=== PATIENT | male | born 1960 | race Caucasian/White ===

== ENCOUNTER 2023-05-04 05:14 | Observation (INO) ==
--- NOTE | 2023-04-06 15:00 | PAT Medication Instructions ---
Medication Instructions Date of Service April 06, 2023 Home Medications atenolol 50 mg tablet 75 mg PO QAM atorvastatin 20 mg tablet 20 mg PO QAM famotidine 1 tab PO QAM finasteride 1 dose PO QAM lisinopril 10 mg-hydrochlorothiazide 12.5 mg tablet 1 tab PO QAM trazodone 50 mg tablet 50 mg PO HS zolpidem 10 mg tablet (Ambien) 10 mg PO HS DO NOT take the morning of surgery lisinopril 10 mg-hydrochlorothiazide 12.5 mg tablet 1 tab PO QAM Take morning of surgery With a small sip of water, OTHERWISE NOTHING TO EAT OR DRINK AFTER MIDNIGHT: atenolol 50 mg tablet 75 mg PO QAM atorvastatin 20 mg tablet 20 mg PO QAM famotidine 1 tab PO QAM finasteride 1 dose PO QAM Take evening before surgery trazodone 50 mg tablet 50 mg PO HS zolpidem 10 mg tablet (Ambien) 10 mg PO HS Other Notes If you have any questions please call us at [phone] or [phone] or [phone] or [phone]
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
[2023-05-04] MEDS ORDERED: TRANEXAMIC ACID 1,000 MG **IV Pre-op IV SCH (06:00)
[2023-05-04] MEDS ORDERED: LR 500ML BOLUS, THEN 15ML/HR IV SCH (06:00)
[2023-05-04] MEDS ORDERED: ACETAMINOPHEN 500 MG TAB PO SCH (06:00)
[2023-05-04] MEDS ORDERED: Scopolamine 1 MG TDSY TD SCH (06:00)
[2023-05-04] MEDS ORDERED: CeleBREX 200 MG CAP PO SCH (06:00)
[2023-05-04] MEDS ORDERED: TRANEXAMIC ACID 1,000 MG **IV Intra-op IV SCH (06:00)
[2023-05-04] MEDS ORDERED: ROPIVACAINE 0.5% HCL/PF 150 MG, BUPIVACAINE 0.75% MPF 20 ML, EPINEPHrine 0.15 MG, Ketor... INFIL SCH (06:00)
[2023-05-04] MEDS ORDERED: LR 60ML/HR IV SCH (06:00)
[2023-05-04] MEDS ORDERED: BUPIVACAINE 0.5 % 5 MG/1 ML PF 10ML VIAL ONE (06:25)
[2023-05-04] MEDS ORDERED: ROPIVACAINE 0.5% 5 MG/ML 30 ML VIAL ONE (06:25)
[2023-05-04] MEDS ORDERED: DEXAMETHASONE SOD INJ 4 MG/ML VIAL ONE (06:25)
--- NOTE | 2023-05-04 06:36 | History & Physical Bridge Note ---
Date of Service May 04, 2023 History & Physical Bridge Note I have examined the patient, reviewed the History & Physical and in the interval since the performance of the History & Physical I have noted the following changes of clinical significance: no changes noted
[2023-05-04] MEDS ORDERED: fentaNYL citrate PF 100 MCG/2 ML VIAL ONE (06:47)
[2023-05-04] MEDS ORDERED: MIDAZOLAM HCL 1 MG/ML 2ML VIAL ONE (06:47)
[2023-05-04] MEDS ORDERED: ORTHO JOINT ANESTHETIC ONE (06:56)
[2023-05-04] MEDS ORDERED: KETAMINE 50 MG/5 ML SYRINGE ONE (07:46)
[2023-05-04] MEDS ORDERED: ONDANSETRON INJ 2 MG/ML 2 ML VIAL IV PRN ×2 (08:16→11:46)
[2023-05-04] MEDS ORDERED: HYDROmorphone INJ 1 MG/ML SYRINGE IV PRN (08:16)
[2023-05-04] MEDS ORDERED: ATROPINE SULFATE 0.1 MG/ML 10ML SYR IV PRN (08:16)
[2023-05-04] MEDS ORDERED: ePHEDrine sulfate 50 MG/ML AMP IV PRN (08:16)
[2023-05-04] MEDS ORDERED: PROPOFOL IV EMULSION 10 MG/ML 20 ML VIAL IV ONE ×3 (09:00→09:28)
--- NOTE | 2023-05-04 10:20 | Post Operative Brief Note ---
Immediate Post Op Note v1 Date of Surgery May 04, 2023 Pre & Post Diagnosis Operation Date: 05/04/23 07:00 Pre-Op Diagnosis: Right Knee Degenerative Joint Disease Post-Op Diagnosis: Right Knee Degenerative Joint Disease I identified the patient and participated in the time-out.: Yes Procedure Operation Date: 05/04/23 07:00 Actual Procedures p Right Total Knee Arthroplasty(Right) - Tj Waite MD Surgeon Tj Waite MD Plasma Processing Technician A MD Anatoly & M RADHA Senior Estimated Blood Loss 120 Findings Consistent with Post-Op Diagnosis Fluids 1400 cc Specimens Right knee contents Complications none
--- NOTE | 2023-05-04 10:20 | Operative Report ---
Post Operative Report Pre & Post Diagnosis Operation Date: 05/04/23 07:00 Pre-Op Diagnosis: Right Knee Degenerative Joint Disease Post-Op Diagnosis: Right Knee Degenerative Joint Disease I identified the patient and participated in the time-out.: Yes Procedure Operation Date: 05/04/23 07:00 Actual Procedures p Right Total knee replacement, imageless computer assisted navigation - Tj Waite MD Surgeon Tj Waite MD Glost Placer Tanna Ledbetter MD & M RADHA Senior Estimated Blood Loss 120 Findings See Below Examined Under Anesthesia: ROM -- There was 5 degrees to 115 degrees of flexion Ligamentous examination -- revealed stable posterior drawer, varus and valgus stress at 0 and 30 degrees. Zackary 6mm anterior translation and soft end point. Outerbridge Grade IV changes of medial compartment, grade III-IV changes Patellofemoral compartment, grade II-III changes lateral compartment. Macerated, complex tear medial meniscus. Marginal and intracondylar osteophytes. Sutures and some soft tissue graft within the former ACL Tibial Tunnel. Fluids 1400 cc Specimens Right knee contents Anesthesia Type MAC Spinal Regional Complications none Indications This is a 62-year-old male who has clinical and radiographic findings consistent with osteoarthritis of the a right knee. I recommended that a right total knee replacement be performed. The patient understands the risks of surgery, which include but not limited to: bleeding, infection, re-operation, damage to nerves and arteries, continued knee pain, knee stiffness, DVT, and . The patient understands all of these instructions and explanations, all of his questions have been satisfactorily addressed and the patient has elected to proceed. Informed consent was signed. Description of Procedure IMPLANTS: 1. Femur: Triathlon #8 Right PS. 2. Tibia: Triathlon #7 [place] with 12 x 50 mm stem. 3. Insert: Triathlon #7 x 9 mm TS X3 poly. 4. Patella: Triathlon A38 x 11 mm X3 poly. 5. Palacos cement. Procedure: The patient was taken to the Operating Room and placed in the supine position after spinal and adductor canal nerve block was administered. My initials and a multidisciplinary time-out were used to identify the right leg as the correct operative limb. A tourniquet was placed high in the thigh. Prior to the incision, 3 grams of intravenous Ancef were given. The right leg was then prepped and draped in a standard sterile fashion. An Esmarch was used to exsanguinate the leg and the tourniquet was inflated to 250 mmHg. The planned mid-line 20 cm incision was created exposing the extensor mechanism. The medial parapatellar arthrotomy was made and the patella was everted. The patella was addressed first. It was prepared by reaming from 26 mm down to 15 mm. An A38 button was found to fit best. The peg holes were made in the standard fashion. The femur was addressed next and using computer assisted OrthoAlign with 3 degrees of flexion and 0 degrees of valgus, removing 10 mm in the standard fashion for the distal cut. The cut was made and the 4-in-1 cutting block for a size 8 femur was placed. These cuts and the cuts to place the box were made in the standard fashion. Our attention was then drawn to the tibia cut with using imageless computer assisted OrthoAlign, taking 2 mm from the medial low side. There was sufficient extension and flexion gap to fit a 9 mm spacer. A #7 Tibial baseplate fit well. A trial with a 9 mm spacer showed good stability in flexion, in extension there was 1mm opening, and thumbs free patellar tracking. A trial with a 9 mm TS spacer showed excellent stability in both flexion and extension, with good ligament balance, and thumbs free patellar tracking. Range of motion of 0-130 degrees. The tibial baseplate was prepped for the keel and stem. A stem was used to by pass the ACL tunnel, to avoid subsidence. All components were removed. The tourniquet was deflated. Hemostasis was obtained. 90 ml of total knee cocktail were injected into the soft tissues and periosteum. After a 10 minute break, the limb was exsanguinated again and the tourniquet was re-inflated. All surfaces were copiously irrigated prior to placement of the components. The femoral component followed by Tibial baseplate were cemented in place and the 9 mm TS X3 poly was placed. Next, the patellar button was placed using the same cement. Once the cement had cured, the range of motion and stability were unchanged. The extensor mechanism was closed with 1-0 Vicryl and 0 Stratafix with the knee bent approximately 60 degrees in a standard fashion. The peritenon and deep fascia was closed with 2-0 Vicryl. The subcutaneous layer was closed with 3-0 Vicryl. The skin was closed with Zipline and shield. The limb was cleaned and dried. 4x4 dressing was placed over top followed by ABDs, sterile Webril, and a foot to thigh Arnold bandage. The patient was then transferred to the Recovery Room in stable condition. The sponge and needle counts were correct. POST-OP INSTRUCTIONS: The patient will be WBAT. The patient will be admitted to the hospital. Labs will be obtained during the stay. DVT prophylaxis will included aspirin for 6 weeks, TEDs, and mechanical foot pumps. The dressing will be changed prior to their discharge or postop day #2 and covered with a Silverlon dressing, whichever comes first as long as the incision as dry. I attest to the content of the Intraoperative Record and any orders documented therein. Any exceptions are noted below.
--- NOTE | 2023-05-04 10:48 | Operative Report ---
Post Operative Report Pre & Post Diagnosis Operation Date: 05/04/23 07:00 Pre-Op Diagnosis: Right Knee Degenerative Joint Disease Post-Op Diagnosis: Right Knee Degenerative Joint Disease I identified the patient and participated in the time-out.: Yes Procedure Operation Date: 05/04/23 07:00 Actual Procedures p Right Total Knee Arthroplasty(Right) - Tj Waite MD Surgeon Dr Tj Waite Mathematics Education Professor A MD Anatoly & M RADHA Senior Estimated Blood Loss 120 Findings Consistent with Post-Op Diagnosis Specimens none Description of Procedure Pt was taken to operating room, placed under spinal anesthesia with MAC. Pt was given 3g Ancef IV. Prepped and draped in sterile fashion. I was present during the entire case and assisted with positioning, instrumentation, closure and dressings. Please see Dr. Waite's op report for further detail. Pt was awake and transferred to PACU in stable condition I attest to the content of the Intraoperative Record and any orders documented therein. Any exceptions are noted below.
--- NOTE | 2023-05-04 11:04 | Operative Report ---
Post Operative Report Pre & Post Diagnosis Operation Date: 05/04/23 07:00 Pre-Op Diagnosis: Right Knee Degenerative Joint Disease Post-Op Diagnosis: Right Knee Degenerative Joint Disease I identified the patient and participated in the time-out.: Yes Procedure Operation Date: 05/04/23 07:00 Actual Procedures p Right Total Knee Arthroplasty(Right) - Tj Waite MD Surgeon Tj Waite MD Renal Technician A MD Anatoly & M RADHA Senior Estimated Blood Loss 120 Findings Consistent with Post-Op Diagnosis Same as postop diagnosis. Specimens None Description of Procedure See deatiled operative note. I attest to the content of the Intraoperative Record and any orders documented therein. Any exceptions are noted below.
--- NOTE | 2023-05-04 11:44 | XRay Report ---
XR knee RT 1 or 2V routine HISTORY: 62 years-old Male Surgical Post Op right knee arthroplasty COMPARISON: 03/18/2023 TECHNIQUE: 2 views of the right knee FINDINGS: Hinged total joint arthroplasty with patellar resurfacing. There is satisfactory alignment with expec beltran postoperative soft tissue swelling and deep tissue air. No acute fracture, malalignment or unexpe cted opaque foreign body. IMPRESSION: Total joint arthroplasty with expected postoperative changes. ACT 112: Negative or not required by law. The above report was generated using voice recognition software. It may contain grammatical, syntax o r spelling errors. Electronically signed by: Daniel Campos M.D. 05/04/2023 11:43 AM
[2023-05-04] MEDS ORDERED: NALOXONE HCL 0.4 MG/1 ML VIAL/CARP IV PRN (11:46)
[2023-05-04] MEDS ORDERED: CETIRIZINE HCL 10 MG TABLET PO PRN (11:46)
[2023-05-04] MEDS ORDERED: MAGNESIUM HYDROXIDE SUSP 30 ML UDC PO PRN (11:46)
[2023-05-04] MEDS ORDERED: bisacodyL 10 MG SUPP PR PRN (11:46)
[2023-05-04] MEDS ORDERED: METOCLOPRAMIDE HCL INJ 5 MG/ML 2 ML VIAL IV PRN (11:46)
[2023-05-04] MEDS ORDERED: TAMSULOSIN HCL 0.4 MG CAP PO PRN (11:46)
[2023-05-04] MEDS ORDERED: HYDROmorphone INJ 0.5 MG/0.5 ML SYR IV PRN (11:46)
[2023-05-04] MEDS: SODIUM CHLORIDE 0.9% 1000ML 1,000 ML IV SCH ×2 (11:54→23:11)
--- NOTE | 2023-05-04 12:54 | Anesthesiology Progress Note ---
Date of Service May 04, 2023 Anesthesia Post Procedure Vital Signs Vital Signs: Temp Pulse Pulse Resp BP Pulse Ox O2 Del Method 05/04/23 12:48 36.4 C L 64 18 121/74 95 Room Air 05/04/23 12:21 36.3 C L 66 18 112/73 95 Room Air 05/04/23 11:30 36.3 C L 59 L 22 107/64 94 Room Air 05/04/23 11:15 60 19 106/61 94 Room Air 05/04/23 10:55 66 19 99/59 L 96 Oxymask 05/04/23 11:05 61 12 100/66 93 Room Air 05/04/23 10:46 36.2 C L 61 21 93/57 L 97 Oxymask 05/04/23 05:50 36.6 C 66 18 100/55 L 95 Room Air O2 Flow Rate 05/04/23 12:48 05/04/23 12:21 05/04/23 11:30 05/04/23 11:15 05/04/23 10:55 5 05/04/23 11:05 05/04/23 10:46 5 05/04/23 05:50 Pain Intensity Right Knee: Pain Intensity: 2 Transfer of Care Handoff Completed per policy Notes Mental Status: alert / awake / arousable and participated in evaluation Nausea / Vomiting: adequately controlled Pain: adequately controlled Airway Patency, RR, SpO2: stable & adequate BP & HR: stable & adequate Hydration State: stable & adequate Neuraxial Anesthesia: was administered and sensory block is resolving Anesthetic Complications: no major complications apparent and Pt Satisfied with anesthetic care
[2023-05-04] MEDS: ACETAMINOPHEN 500 MG TAB PO SCH ×2 (13:15→23:14)
--- NOTE | 2023-05-04 13:56 | Orthopedic Progress Note ---
Date of Service May 04, 2023 Assessment & Plan (1) Osteoarthritis of right knee: Plan: POD #0 s/p R TKA, doing as well as expected. Resume diet. WBAT with walker. OOB to chair. Complete Abx Continue pain control. Check labs tomorrow. DVT prophylaxis: TEDs 3 weeks, foot pumps while in hospital, ASA 81 mg BID for 6 weeks. PT/OT. Change dressing tomorrow if able to be d/c home. D/C planning. Admission and Anticipated Discharge Date Admission Date: May 04, 2023 Subjective Tolerable right knee discomfort. Physical Exam Physical Exam: RLE: BCR < 2 sec. Sensation to light touch intact distally. Wiggling ankle and toes. Able to preform strainght leg raise. Calf soft and non-tender. Dressing is clean, dry, intact. Results & Data Vital Signs (Past 12 Hours) Vital Signs Temp Pulse Pulse Resp BP Pulse Ox O2 Del Method 05/04/23 12:48 36.4 C L 64 18 121/74 95 Room Air 05/04/23 12:21 36.3 C L 66 18 112/73 95 Room Air 05/04/23 11:30 36.3 C L 59 L 22 107/64 94 Room Air 05/04/23 11:15 60 19 106/61 94 Room Air 05/04/23 10:55 66 19 99/59 L 96 Oxymask 05/04/23 11:05 61 12 100/66 93 Room Air 05/04/23 10:46 36.2 C L 61 21 93/57 L 97 Oxymask 05/04/23 05:50 36.6 C 66 18 100/55 L 95 Room Air O2 Flow Rate 05/04/23 12:48 05/04/23 12:21 05/04/23 11:30 05/04/23 11:15 05/04/23 10:55 5 05/04/23 11:05 05/04/23 10:46 5 05/04/23 05:50 Diagnostic Findings Impressions Knee X-Ray 05/04/23 10:58 XR knee RT 1 or 2V routine HISTORY: 62 years-old Male Surgical Post Op right knee arthroplasty COMPARISON: 03/18/2023 TECHNIQUE: 2 views of the right knee FINDINGS: Hinged total joint arthroplasty with patellar resurfacing. There is satisfactory alignment with expected postoperative soft tissue swelling and deep tissue air. No acute fracture, malalignment or unexpected opaque foreign body. IMPRESSION: Total joint arthroplasty with expected postoperative changes. ACT 112: Negative or not required by law. The above report was generated using voice recognition software. It may contain grammatical, syntax or spelling errors. Electronically signed by: Daniel Campos M.D. 05/04/2023 11:43 AM
[2023-05-04] MEDS: Scopolamine CHECK PATCH PLACEMENT SCH (15:17)
[2023-05-04] MEDS: ASCORBIC ACID 500 MG TAB PO SCH (16:04)
[2023-05-04] MEDS: ceFAZolin 2000MG 2,000 MG/15 ML SYR IV SCH ×2 (16:04→23:17)
[2023-05-04] MEDS: FERROUS GLUCONATE 324 MG TAB PO SCH (16:04)
[2023-05-04] MEDS ORDERED: traZODone HCL 50 MG TAB PO SCH (21:00)
[2023-05-04] MEDS ORDERED: ZOLPIDEM TARTRATE 10 MG TAB PO SCH (21:00)
[2023-05-04] MEDS ORDERED: SENNA 8.6 MG TAB PO SCH (21:00)
[2023-05-04] MEDS: oxyCODONE HCL IR 5 MG TAB (IMMEDIATE RELEASE) PO PRN (21:02)
[2023-05-04] MEDS: ASPIRIN 81 MG ECTAB PO SCH (21:04)
[2023-05-04] MEDS: DOCUSATE SODIUM 100 MG CAP PO SCH (21:04)
[2023-05-05] MEDS: Scopolamine CHECK PATCH PLACEMENT SCH ×2 (00:57→07:57)
[2023-05-05] MEDS: oxyCODONE HCL IR 5 MG TAB (IMMEDIATE RELEASE) PO PRN ×2 (03:12→13:00)
[2023-05-05] MEDS: ACETAMINOPHEN 500 MG TAB PO SCH ×2 (06:04→13:00)
[2023-05-05] MEDS: ASCORBIC ACID 500 MG TAB PO SCH (07:55)
[2023-05-05] MEDS: ASPIRIN 81 MG ECTAB PO SCH (07:56)
[2023-05-05] MEDS: FERROUS GLUCONATE 324 MG TAB PO SCH (07:56)
[2023-05-05] MEDS: DOCUSATE SODIUM 100 MG CAP PO SCH (07:56)
[2023-05-05 08:04] LABS: Hematocrit (blood only) 38.6 % (42.0-52.0); Mean Corpuscular Hemoglobin 28.8 pg (25.0-34.0); Mean Corpuscular Hgb Conc 33.7 g/dL (32.0-36.0); Mean Corpuscular Volume 85.4 fL (80.0-100.0); Platelet Count 208 K/uL (130-400); RDW Coefficient of Variation 13.9 % (11.5-14.5); RDW Standard Deviation 43.8 fL (36.4-46.3); Red Blood Count 4.52 M/uL (4.70-6.10); White Blood Count 13.15 K/ul (4.8-10.8)
[2023-05-05 08:13] LABS: BUN Creatinine Ratio 21.7 (10-20); Creatinine Clr Calc Pharmacy 81.9 ml/min; Est GFR (African American) 68.4 ml/min; Potassium 4.2 mmol/L (3.5-5.1)
[2023-05-05] MEDS ORDERED: ATENOLOL 25 MG TABLET PO SCH (09:00)
[2023-05-05] MEDS ORDERED: MULTIVITAMIN TAB PO SCH (09:00)
[2023-05-05] MEDS ORDERED: FINASTERIDE 5 MG TAB PO SCH (09:00)
[2023-05-05] MEDS ORDERED: ATORVASTATIN 20 MG TAB PO SCH (09:00)
[2023-05-05] MEDS ORDERED: FAMOTIDINE 20 MG TAB PO SCH (09:00)
[2023-05-05] MEDS ORDERED: LISINOPRIL/HCTZ 10/12.5MG TAB PO SCH (09:00)
--- NOTE | 2023-05-05 09:33 | Orthopedic Progress Note ---
Date of Service May 05, 2023 Assessment & Plan (1) Osteoarthritis of right knee: Plan: POD #1 s/p R TKA, doing as well as expected. Pain controlled with oral pain meds. Resume diet. WBAT with walker. OOB to chair. Completed Abx Continue pain control. DVT prophylaxis: TEDs 3 weeks, foot pumps while in hospital, ASA 81 mg BID for 6 weeks. PT/OT. Change dressing prior to d/c home. D/C planning. Admission and Anticipated Discharge Date Admission Date: May 04, 2023 Subjective Tolerable right knee discomfort. Noted some muscle spasm with knee extended. Did not sleep well. Overall feels good. Physical Exam Physical Exam: RLE: BCR < 2 sec. Sensation to light touch intact distally. Wiggling ankle and toes. Able to preform strainght leg raise. Calf soft and non-tender. Dressing is clean, dry, intact. Results & Data Vital Signs (Past 12 Hours) Vital Signs Temp Pulse Resp BP Pulse Ox O2 Del Method 05/05/23 07:42 36.7 C 67 18 124/76 96 Room Air 05/05/23 03:09 36.5 C 80 16 132/79 94 Room Air 05/04/23 23:36 36.7 C 71 16 131/76 94 Room Air Laboratory Results Laboratory Results WBC 13.15 K/ul (4.8-10.8) H 05/05/23 07:27 RBC 4.52 M/uL (4.70-6.10) L 05/05/23 07:27 Hgb 13.0 g/dl (14.0-18.0) L 05/05/23 07:27 Hct 38.6 % (42.0-52.0) L 05/05/23 07:27 MCV 85.4 fL (80.0-100.0) 05/05/23 07:27 MCH 28.8 pg (25.0-34.0) 05/05/23 07:27 MCHC 33.7 g/dL (32.0-36.0) 05/05/23 07:27 RDW Std Deviation 43.8 fL (36.4-46.3) 05/05/23 07:27 RDW Coeff of Juan Antonio 13.9 % (11.5-14.5) 05/05/23 07:27 Plt Count 208 K/uL (130-400) 05/05/23 07:27 MPV 11.0 fL (9.4-12.4) 05/05/23 07:27 Sodium 137 mmol/L (136-145) 05/05/23 07:27 Potassium 4.2 mmol/L (3.5-5.1) 05/05/23 07:27 Chloride 106 mmol/L (98-107) 05/05/23 07:27 Carbon Dioxide 25 mmol/L (21-32) 05/05/23 07:27 Anion Gap 6 (3-11) 05/05/23 07:27 BUN 28 mg/dl (6-23) H 05/05/23 07:27 Creatinine 1.29 mg/dl (0.6-1.4) 05/05/23 07:27 Est Cr Clr Drug Dosing 81.9 ml/min 05/05/23 07:27 Est GFR ( Amer) 68.4 ml/min 05/05/23 07:27 Est GFR (Non-Af Amer) 59.0 ml/min 05/05/23 07:27 BUN/Creatinine Ratio 21.7 (10-20) H 05/05/23 07:27 Glucose 125 mg/dl (70-99(Fasting)) H 05/05/23 07:27 Calcium 9.0 mg/dl (8.6-10.3) 05/05/23 07:27 Impressions Knee X-Ray 05/04/23 10:58 XR knee RT 1 or 2V routine HISTORY: 62 years-old Male Surgical Post Op right knee arthroplasty COMPARISON: 03/18/2023 TECHNIQUE: 2 views of the right knee FINDINGS: Hinged total joint arthroplasty with patellar resurfacing. There is satisfactory alignment with expected postoperative soft tissue swelling and deep tissue air. No acute fracture, malalignment or unexpected opaque foreign body. IMPRESSION: Total joint arthroplasty with expected postoperative changes. ACT 112: Negative or not required by law. The above report was generated using voice recognition software. It may contain grammatical, syntax or spelling errors. Electronically signed by: Daniel Campos M.D. 05/04/2023 11:43 AM
--- NOTE | 2023-05-06 16:21 | Discharge Summary ---
Date of Service May 06, 2023 Admission HPI Per Admitting Provider Patient is a 62-year-old male presenting today for their pre-operative history and physical examination prior to undergoing a right total knee arthroplasty with Dr Waite? He states his knee pain started in the 's and was previously in the [employer]. Patient ruptured his ACL in 2002 and had it reconstructed in 2004. He pinched a nerve in his back several years ago. Patient now has much trouble with activity and has done much physical therapy for his knee. He has seen a chiropractor, therapeutic masseuse, and used crutches to help relieve his knee pain, all of which has been unsuccessful. He has a history of neuropathy and has gotten EMG studies done for this. The patient has failed conservative treatment including cortisone and euflexxa injections. Risks and benefits of surgery were discussed as well as the post- operative course and the patient is electing to proceeding with surgical intervention. Pt was seen and examined bedside. POD #1 s/p right total knee arthroplasty. Pt was admitted last night for observation. No major events over night. Vitals are stable. Labs unremarkable. X-rays show normal post operative changed. Pt reports they are doing well and pain is controlled. They are tolerating PO intake and voiding adequate amounts. Working well with PT/OT. Pt denies F/C, N/V/D, SOB, CP. Pt deemed medically stable and ready for discharge. Admission Exam Per Admitting Provider General: Pt is well nourished, seated on the exam table AA&O, in NAD, calm and cooperative during exam HENT: Nontraumatic, no gross deformity, hearing and vision grossly in-tact, PERRL Heart: +S1, +S2, RRR, no murmurs appreciated Lungs: CTABL, no wheezing appreciated Focusing on the patient's right lower extremity: 2+ DP pulse Sensation to light touch is intact Motor to the gastroc soleus, tibialis anterior, and EHL is 5/5. Able to perform straight leg raise. Varus alignment Previous incision well-healed + Lateral and medial joint line tenderness. + Lateral patellar facet tenderness + Henry cyst - Justen's 3-4 mm of anterior translation in soft endpoint Ligamentous examination exhibits: stable Zackary 0 mm anterior translation and firm endpoint Posterior drawer stable Varus stress at 0 and 30 stable Valgus stress at 0 and 30 stable Trace Effusion Range of motion 5 to 110 Principal Diagnosis right knee osteoarthritis s/p right total knee arthroplasty Discharge Exam General: Pt laying in hospital bed AA&O, in NAD, calm and cooperative during exam Lower Extremity: Dressing in tact and not saturated. Incisions clean, dry and with minimal drainage and no surrounding erythema, warmth or purulent drainage. Pt has full ROM of ankle and all 5 digits. Pt has 5/5 strength with resisted DF/PF. SLR in tact. Calf supple and non tender. NVI with sensation to light touch distally and good distal pulses present. Lower extremity noted to have good color and temperature with no signs of vascular or lymphatic insufficiency. Discharge Data Allergies Allergy/AdvReac Type Severity Reaction Status Date / Time No Known Allergies Allergy Verified 05/04/23 05:42 Procedures Performed Operation Date: 05/04/23 07:00 Actual Procedures p Right Total Knee Arthroplasty(Right) - Tj Waite MD Ordered Studies 05/04/23 05:00 US - OR guided needle placemen Routine Hospital Course (1) Osteoarthritis of right knee: POD #1 s/p R TKA, doing as well as expected. Pain controlled with oral pain meds. Resume diet. WBAT with walker. OOB to chair. Completed Abx Continue pain control. DVT prophylaxis: TEDs 3 weeks, foot pumps while in hospital, ASA 81 mg BID for 6 weeks. PT/OT. Change dressing prior to d/c home. D/C planning. Total Time Total Time Spent Total Time Spent (In Minutes): 15 minutes reviewing chart and doing dictation Discharge Plan Discharge Items Patient Disposition: Home - Home Health Services Reason For Visit: right knee osteoarthritis Discharge Diagnosis: s/p right total knee arthroplasty Condition on Discharge: Good Activity: Per Instructions section Lifting: Wait until after follow-up appointment Bathing: Keep incision dry Weightbearing: Full weightbearing Non-emergency contact: Surgeon Call non-emergency contact if: your pain is not controlled, your temperature is above 101.5, your wound has increased redness and your wound has increased drainage Follow-up/Referrals: Fabby Senior PA-C [Physician Soil Science Technical Officer] - 05/17/23 2:30 pm PCP,NO [Physician] - Diet: Regular Addtl Attending Provider Instructions: ORTHOPEDIC DISCHARGE INSTRUCTIONS -Weight bearing as tolerated with walker to assist in ambulation -Home health/PT x 2 weeks. You will receive home exercises to do on your own for the first two weeks from home PT. Please do these exercises 3 times a day. -Frequently ice, at least 20 minutes 5 times a day. -Elevate operative leg above your heart with pillows/blankets underneath your ankle, never under your knee. This helps to keep the knee in extension and prevent a flexion contracture. -You may shower on Post op Day 3. Leave Mepilex dressing in tact until follow up appt in 2 weeks. Your dressing is water-resistant, meaning you can shower with it on as long as it is in-tact. Letting some running water run over top of it from the shower is okay. You cannot submerge your incision in water. No baths, hot tubs or swimming pools. Keep dressing clean and dry. If your dressing starts to peel off or gets moisture under it after 7 days, home health nurse may reinforce as needed. -DVT prophylaxis: Aspirin 81mg twice a day for 6 weeks, ROBY compression stockings for 3 weeks -While taking Aspirin, if you start to get upset stomach, we recommend taking over the counter Pepcid, 20mg twice a day as long as you are taking the Aspirin -Pain control: oxycodone 5mg every 4-6 hours as needed, Tylenol 500-1000mg every 8 hours -To promote healing, please take 500mg Vitamin C twice a day with meals x 2 weeks and Iron 325 mg twice a day with meals x 2 weeks -While on narcotic pain medication and iron supplement, we recommend you take a stool softener to prevent constipation -Follow up as scheduled in 2 weeks with [facility] for post op evaluation and Zip-line removal. Please call our office sooner @ [phone] if you have any questions or concerns Pending Studies at Discharge: No Stand-Alone Forms: My Dónde, Smoking Cessation Medications and DC Order Prescriptions: New aspirin 81 mg Tablet,Delayed Release (Dr/Ec) 81 mg PO BID 30 Days Qty: 60 0RF oxycodone 5 mg Tablet 5 - 10 mg PO Q4H PRN (Reason: Post op pain ) 3 Days Qty: 28 0RF Continued atorvastatin 20 mg Tablet 20 mg PO QAM trazodone 50 mg Tablet 50 mg PO HS lisinopril-hydrochlorothiazide [Zestoretic] 10-12.5 mg Tablet 1 tab PO QAM zolpidem [Ambien] 10 mg Tablet 10 mg PO HS atenolol 50 mg Tablet 75 mg PO QAM famotidine 20 mg PO QAM finasteride 5 mg PO QAM cetirizine 5 mg Tablet 5 mg PO DAILY PRN (Reason: conjestion) Krames/Other Patient Handouts: Total Knee Replacement Admission Data Admit Date/Time: 05/04/23 10:58 Attending Provider: Tj Waite Admit Provider: Tj Waite Primary Care Provider: Glen Vidales Other Providers: [facility],Home Healthcare Other Interventions: Discharge Summary Assessment (RN) Last Done: 05/05/23 12:52
== END 2023-05-05 13:37 | disposition home health service (06) ==
LOC: 3N 05:14 → ASU 05:14